=== PATIENT | female | born 1985 | race Hispanic/Latino ===

== ENCOUNTER 2018-11-24 05:28 | Day surgery (SDC) | payer BC ==
[2018-11-23 14:42] VITALS: BP 119/70
[2018-11-23 14:46] LABS: BASOPHILS % (AUTO) 0.6 % (0.0-5.0); EOSINOPHILS % (AUTO) 4.9 % (0.0-8.0); HEMATOCRIT 43.1 % (36-48); LYMPHOCYTES % (AUTO) 31.3 % (21.0-51.0); MEAN CORPUSCULAR HGB CONC 34.2 g/dL (32.0-36.0); MEAN CORPUSCULAR VOLUME 93.6 fL (79-99); MONOCYTES % (AUTO) 7.3 % (3.0-13.0); NEUTROPHILS % (AUTO) 55.9 % (40.0-77.0); PLATELET COUNT (AUTO) 226 K/uL (130-400); RED BLOOD CELL COUNT(AUTO) 4.61 MIL/uL (4.00-5.50); RED CELL DISTRIBUTION WIDTH 12.7 % (11.0-15.5); WHITE BLOOD COUNT (AUTO) 6.9 K/uL (4.8-10.8)
[2018-11-24] VITALS (19 sets, daily range): BP systolic 100–118; BP diastolic 46–74
[~2018-11-24] VITALS: Ht 170.2 cm; Wt 90.2 kg
[~2018-11-24 05:28] MED LIST: NORG1TAB13 PO
[2018-11-24] MEDS ORDERED: LACTATED RINGERS 1000ML 1,000 ML IV ONE (05:37)
[2018-11-24] MEDS ORDERED: ROCURONIUM 10MG/1ML SYR 10 MG/ML ML ONE (07:38)
[2018-11-24] MEDS ORDERED: NEOSTIGMINE 5MG/5ML SYR IV ONE (07:38)
[2018-11-24] MEDS ORDERED: OXYTOCIN 10 USP UNITS/ML ONE (07:38)
[2018-11-24] MEDS ORDERED: GLYCOPYRROLATE 1 MG/5 ML SYRINGE ONE (07:38)
[2018-11-24] MEDS ORDERED: LIDOCAINE PF 2% 5ML ABBOJECT ONE (07:38)
[2018-11-24] MEDS ORDERED: MIDAZOLAM HCL 1 MG/ML 2ML VIAL ONE (07:38)
[2018-11-24] MEDS ORDERED: FENTANYL CITRATE PF 50 MCG/1 ML 2ML VIAL ONE (07:39)
[2018-11-24] MEDS ORDERED: PROPOFOL 10 MG/ML 20ML VIAL IV ONE (07:40)
[2018-11-24] MEDS ORDERED: DEXAMETHASONE SOD PHOSPHATE 10MG/ML 1ML VIAL ONE (07:56)
[2018-11-24] MEDS ORDERED: ONDANSETRON HCL 4 MG/2 ML VIAL ONE (07:56)
[2018-11-24] MEDS ORDERED: MEPERIDINE-PF 25 MG/ML SYG ONE (08:52)
--- NOTE | 2018-11-24 09:40 | NUR ---
ASSESSMENT RECEIVED PT FROM PACU STAFF Sulaiman OWUSU RN. PT DROWSY BUT AROUSABLE. ABD DRSG DRY AND INTACT. NO BLEEDING, OOZING NOTED TO SITE. SOFT TO TOUCH.
--- NOTE | 2018-11-24 10:55 | NUR ---
DISCHARGE ORAL AND WRITTEN DISCHARGE INSTRUCTIONS GIVEN TO PT AND PTS ALONG WITH PRESCRIPTION BY Candice HYMAN RN. NO OTHER QUESTIONS.
== END 2018-11-24 11:00 | disposition home or self-care (01) ==
LOC: DAH 05:28
PROVIDERS: ATTEND Obstetrics & Gynecology
DX: Z30.2 Encounter for sterilization (principal); Z68.31 Body mass index [BMI] 31.0-31.9, adult
CPT/HCPCS: 36415; 58670; 84703; 85025; 86850; 86900; 86901; A4215; A4351; A4452; A4606; C1769 ×2; J1100; J2001; J2175; J2250; J2405; J2590; J2704; J2710; J3010; J3490; J7120